=== PATIENT | male | born 1960 | race Caucasian/White ===

== ENCOUNTER 2018-04-21 05:33 | Observation (INO) | payer OTHER ==
[2018-04-21] MEDS ORDERED: POVIDONE-IODINE 20 ML in SODIUM CL IRRIG SOLUTION 500 ML IRR ONE (06:00)
[2018-04-21] MEDS ORDERED: ROPIVACAINE 0.2% 80 MG, EPINEPHrine 0.2 MG, KETOROLAC TROMETHAMINE 30 MG in SYRINGE 0 ML IU ONE (06:00)
[2018-04-21] MEDS ORDERED: ACETAMINOPHEN 500 MG TAB PO ONE (06:05)
[2018-04-21] MEDS ORDERED: LR 1,000 ML IV SCH (06:05)
[2018-04-21] MEDS ORDERED: ceFAZolin 2 GM/DEXTROSE 100 ML IV ONE (06:05)
[2018-04-21] MEDS ORDERED: LR 1,000 ML IV ONE (06:06)
[2018-04-21] MEDS ORDERED: LIDOCAINE 1% 2 ML INJ ID PRN (06:06)
[2018-04-21] MEDS ORDERED: BUPIVACAINE/EPI 0.5% 30 ML SDV ONE (06:46)
[2018-04-21] MEDS ORDERED: POLYMYXIN B SULFATE 500,000 UNIT/10 ML SYR IRR ONE (06:46)
[2018-04-21] MEDS ORDERED: BACITRACIN 50,000 UNITS/10 ML SYR IRR ONE (06:46)
[2018-04-21] MEDS ORDERED: PROPOFOL/EMULSION 500 MG/50 ML BOTTLE IV ONE ×3 (07:03→10:55)
[2018-04-21] MEDS ORDERED: BUPIVACAINE/DEXTROSE 7.5MG/ML 2 ML SPINAL AMP SP ONE (07:03)
[2018-04-21] MEDS ORDERED: LIDOCAINE 2% 5 ML SDV ONE (07:03)
--- NOTE | 2018-04-21 07:05 | PDHPUP ---
History & Physical Update H&P update statement: This history and physical update is based on an assessment of the patient which was completed after admission or registration (within 24 hours), but prior to the surgery/procedure. H&P update: H&P reviewed & patient examined
[2018-04-21] MEDS ORDERED: MIDAZOLAM 2 MG/2 ML VIAL IVP ONE (07:08)
--- NOTE | 2018-04-21 07:11 | PDANEPAE ---
ANE Past Medical History - Cardiovascular History Hx Hypertension: Yes Hx Arrhythmias: No Hx Chest Pain: No Hx Coronary Artery / Peripheral Vascular Disease: No Hx CHF / Valvular Disease: No Hx Palpitations: No - Pulmonary History Hx COPD: No Hx Asthma/Reactive Airway Disease: No Hx Recent Upper Respiratory Infection: No Hx Oxygen in Use at Home: No Hx Sleep Apnea: No Sleep Apnea Screening Result - Last Documented: Positive - Neurologic History Hx Cerebrovascular Accident: No Hx Seizures: No Hx Dementia: No - Endocrine History Hx Diabetes: No - Renal History Hx Renal Disorders: No - Liver History Hx Hepatic Disorders: No - Neurological & Psychiatric Hx Hx Neurological and Psychiatric Disorders: No - Cancer History Hx Cancer: Yes Cancer History Comment: melanoma - Congenital Disorder History Hx Congenital Disorders: No - GI History Hx Gastrointestinal Disorders: No - Other Health History Other Health History: none - Chronic Pain History Chronic Pain: No - Surgical History Prior Surgeries: left hip RONAL 2016 ANE Review of Systems Review of Systems: - Exercise capacity METS (RN): 5 METS ANE Patient History - Allergies Allergies/Adverse Reactions: No Known Allergies Allergy (Verified 04/07/18 11:08) - Home Medications Home Medications: Valsartan [Diovan (*)] 40 mg PO DAILY 04/02/18 [Last Taken Unknown] - NPO status NPO Since - Liquids (Date): 04/20/18 NPO Since - Liquids (Time): 18:00 NPO Since - Solids (Date): 04/20/18 NPO Since - Solids (Time): 18:00 - Anes Hx Anes Hx: no prior problems - Smoking Hx Smoking Status: Never smoked - Family Anes Hx Family Hx Anesthesia Complications: none ANE Labs/Vital Signs - Vital Signs Blood Pressure: 116/83 Heart Rate: 55 Respiratory Rate: 15 O2 Sat (%): 95 Height: 175.26 cm Weight: 86.183 kg ANE Physical Exam - Airway Mallampati Score: Class 2 - Pulmonary Pulmonary: no respiratory distress, no rales or rhonchi, clear to auscultation - Cardiovascular Cardiovascular: regular rate and rhythym, no murmur, rub, or gallop - ASA Status ASA Status: II ANE Anesthesia Plan Anesthesia Plan: spinal
[2018-04-21] MEDS ORDERED: ePHEDrine SULFATE 25 MG/5 ML SYR ONE (07:58)
[2018-04-21] MEDS ORDERED: PHENYLEPHRINE HCL 100 MCG/ML SYR ONE (08:13)
[2018-04-21] MEDS ORDERED: GLYCOPYRROLATE 0.2 MG/1 ML VIAL ONE ×2 (08:14→11:47)
[2018-04-21] MEDS ORDERED: PROPOFOL 200 MG/20 ML VIAL ONE ×2 (09:54→10:26)
[2018-04-21] MEDS ORDERED: LR 500 ML IV PRN (12:00)
[2018-04-21] MEDS ORDERED: MEPERIDINE 25 MG/0.5 ML AMP IVP PRN (12:00)
[2018-04-21] MEDS ORDERED: HYDROCODONE/APAP 5/325 TAB PO PRN (12:00)
[2018-04-21] MEDS ORDERED: NALOXONE HCL 0.4 MG/ML INJ IVP PRN (12:00)
[2018-04-21] MEDS ORDERED: ENALAPRILAT DIHYDRATE 1.25 MG/ML VIAL IVP PRN (12:00)
[2018-04-21] MEDS ORDERED: ACETAMINOPHEN 500 MG TAB PO PRN (12:00)
[2018-04-21] MEDS ORDERED: ONDANSETRON 4 MG/2 ML VIAL IVP PRN (12:00)
[2018-04-21] MEDS ORDERED: PROMETHAZINE HCL 25 MG/ML INJ IVP PRN (12:00)
[2018-04-21] MEDS ORDERED: DEXAMETHASONE 4 MG/ML VIAL IVP PRN (12:00)
[2018-04-21] MEDS ORDERED: ceFAZolin 1 GM VIAL ONE (12:09)
--- NOTE | 2018-04-21 12:22 | POSTOPPROG ---
Post Op Note Date of Operation: 04/21/18 Surgeon: Alfonso Butler Returned Item Clerk: Ivett Anesthesiologist: [place] Anesthesia: GET(General Endotracheal), Spinal Post-op Diagnosis: Hip arthritis with retained hardware in right femur Procedure: Hardware removal right hip and femur Inf/Abcess present in the surg proc area at time of surgery?: No EBL: 100-500
[2018-04-21] MEDS ORDERED: fentaNYL 100 MCG/2 ML INJ ONE ×2 (12:30→13:01)
[2018-04-21] MEDS ORDERED: ACETAMINOPHEN 325 MG TAB PO PRN (12:32)
[2018-04-21] MEDS: fentaNYL 100 MCG/2 ML INJ IVP PRN ×4 (12:32→13:17)
[2018-04-21] MEDS ORDERED: ONDANSETRON DISINTEGRATING 4 MG TAB PO PRN (12:32)
--- NOTE | 2018-04-21 12:42 | POSTANESTH ---
Post Anesthetic Evaluation Cardiovascular Status: Normal, Stable, Similar to Pre-Op Cond Respiratory Status: Normal, Stable, Similar to Pre-op Cond. Level of Consciousness/Mental Status: Can Participate in Eval, Mildly Sleepy, Arousable Pain Control: Inadeq, Add Tx Required Nausea/Vomiting Control: Adequate, Prn Tx Ordered Complications Possibly Related to Anesthesia: None Noted
[2018-04-21] MEDS ORDERED: NS 1,000 ML IV SCH (12:45)
[2018-04-21] MEDS ORDERED: traMADol 50 MG TAB PO PRN (13:00)
[2018-04-21] MEDS ORDERED: oxyCODONE IR 5 MG TAB ONE ×2 (13:02→13:16)
[2018-04-21] MEDS: oxyCODONE IR 5 MG TAB PO PRN ×2 (13:03→13:16)
--- NOTE | 2018-04-21 13:25 | GOP ---
[f rep st] OPERATIVE REPORT DATE OF OPERATION: 04/21/2018 SURGEON: Alfonso Butler MD WINDOWS DESKTOP SUPPORT: Juanito Killian CFA, Shashi Nunez, PAC. ANESTHESIA: Combination of Marcaine, spinal, and IV sedation. ANESTHESIOLOGIST: Navin Coleman MD. PREOPERATIVE DIAGNOSIS: 1. Status post open reduction and internal fixation of right subtrochanteric femur fracture with retained hardware. 2. Right hip severe degenerative arthritis. POSTOPERATIVE DIAGNOSIS: 1. Status post open reduction and internal fixation of right subtrochanteric femur fracture with retained hardware. 2. Right hip severe degenerative arthritis. PROCEDURE PERFORMED: Deep complex hardware removal from the right hip and the right femur. Kennard T 2 recon nail, 2 6.5 mm lag screws, 2 5 mm distal interlocking screws. FINDINGS: ESTIMATED BLOOD LOSS: Estimated blood loss was about 400 cc. The procedure was lengthy and complex, it took 4-1/2 hours, about 400 cc of blood loss. Juanito Killian CFA, Shashi Nunez, PAC acted as surgical assistants. Their assistance was a medical necessity. I took great effort to remove the hardware because he needs a total hip replacement on the right side. It is necessary to remove the hardware in order to perform his total hip replacement. DESCRIPTION OF PROCEDURE: The patient was given 2 g of preoperative IV Ancef within 60 minutes of surgery. He was placed on the operating room table and given spinal anesthesia with Marcaine. He was then placed supine and given IV sedation. I did his surgery on the Landry table so that I could used fluoroscopy through the table. He was placed supine but a triangular pillow was placed under the right side of his back and buttocks so he was tipped up in a slightly lateral position. His right hip and entire right lower extremity were prepped with ChloraPrep all the way to the tips of the toes. The hip and right lower extremity were draped free using sterile sheets, towels, stockinette and Ioban plastic drape. The World Health Organization time-out was performed to verify the correct patient identity and the correct surgical side. The first step was to remove the distal of the 2 distal interlocking screws. The more proximal of the interlocking screws was already broken as seen on the preop films. I used the fluoroscope to localize my skin puncture wound. I made a 1 cm incision through the preexisting incision which was used to insert the screw. With blunt dissection, I was able to palpate the head of the screw. The screwdriver was engaged, and the more distal of the 2 distal interlocking screws was removed without difficulty. I then made a lateral incision in the subtrochanteric region to remove the 2 cannulated screws which were going up into the femoral head and neck. The incision was about 2-3 inches in length. Subcutaneous tissues were sharply divided, and hemostasis was obtained using electrocautery. The fascia mahendra was split. With blunt dissection, I attempted to find the heads of the screws. I had to use fluoroscopy to help me identify the heads. There was bony overgrowth over 1 of the heads. I first removed the more distal of the 2 6.5 mm lag screws. This was in very firmly but I was able to loosen it and back it out. The more proximal of the 2 screws was also very tight. I was concerned that the set locking screw in the proximal end of the nail might be engaging the 6.5 screw and prevented me from backing it out. I then reopened his original incision in his buttocks. Subcutaneous tissues were sharply divided, and hemostasis was obtained using electrocautery. This incision might have worked well for putting the nail in but it was poorly positioned for removal of the nail. I had to extend the incision about an inch and half further. With blunt dissection and with the use of the fluoroscopy, I was finally able to visualize the proximal end of the intramedullary nail. I backed locking set screw out without difficulty. However, the small polyethylene tip to it was disengaged from the metal screw. I had to use a drill and an osteotome to drill this polyethylene piece out. I was then able to get the extractor threaded down into the proximal portion of the intramedullary nail. I then went back and removed the second of the 6.5 mm lag screws going up into the head and neck. This came out without difficulty but it was a very tight fit. I then made a second distal puncture wound and removed the lateral half of the broken transfixion screw. I was hoping that I could back the nail out and the remaining medial piece of the screw would not create a problem. The extractor was threaded onto the proximal portion of the nail. We tried backing the nail out,but it was very difficult. I used fluoroscopy to visualize the distal femur. I could see that the distal or medial segment of the broken screw was engaged in the medial cortex and I fractured a 2 cm window of the cortex. I did not think I could get the IM nail backed out without removing that broken piece of screw. I made a 2 inch incision on the medial side of the supracondylar aspect of his knee. The deep fascia was split. The vastus medialis was elevated. I could see the medial cortex. I could see the small fracture but I could also see the head of the screw where it was penetrating through the cortex. I used a small osteotome to enlarge the window. I also used a core reamer over the screw to loosen it from the medial cortex. Eventually I could get a mackey needle major on the fragment of screw and thread it out. I then went back to try to remove the IM nail, but is was very tight. After numerous attempts, we were able to back it out about an inch. At that point the threads on the nail were stripped. We tried multiple attempts at using vice polo coach attached to the proximal end of the nail and then using a slap hammer attached to the vise polo coach, however, that was unsuccessful. Ultimately, we took the extracting handle from a tibial nail and were able to thread that down into the threads of the femoral nail and engage it enough that we could get a decent purchase. The slap hammer was then used to slowly back out the nail. It was very tight and it took multiple attempts by Hima Solomon and myself to back the nail out. I then used the fluoroscopy to check the entire length of the femur to make sure there were no fractures. I felt that the small fracture in the medial cortex distally was stable and did not need any additional fixation. The hardware was cleaned and given to the patient. The wounds were all irrigated with Betadine solution. The fascia on the medial wound was closed with interrupted 0 Vicryl sutures. The fascia of the 2 larger wounds proximally was closed with interrupted 2-0 Vicryl sutures. Subcutaneous tissues were closed with interrupted 2-0 Vicryl. The skin on all the incisions was closed with jef. The skin edges were infiltrated with 30 cc of 0.5% Marcaine with epinephrine. The wounds were covered with Xeroform gauze and flat 4 x 4's. The distal femur was wrapped with a Kerlix. The proximal femur, the dressing was held in place with tape. He was awakened from anesthesia, transferred to his gurney and taken to PACU in satisfactory condition. The procedure took 4 and 1/2 hours. There was approximately 300 ml of blood loss. Juanito Killian and Hima Nunez acted as surgical assistants. There assistance was a medical necessity for safe completion of the procedure. Copy requested to: Alfonso Davey MD [facility] /[id number]/MODL MTDD
[2018-04-21] MEDS: KETOROLAC 15 MG/1 ML SDV IVP SCH (18:00)
[2018-04-22] MEDS: KETOROLAC 15 MG/1 ML SDV IVP SCH ×2 (00:10→05:39)
--- NOTE | 2018-04-22 07:15 | SOAPPROG ---
SOAP Progress Note Assessment/Plan: Assessment: Afebrile. Moderate pain. Has been walking in [place]. Needed cath 1 X last night. Voiding small amounts since. Dsgs are dry. Sciatic nerve intact. H/H is good. Complexity of procedure described to pt. Plan: Up with PT today Home is he can void. 04/22/18 07:13 Objective: Vital Signs Temp Pulse Resp BP Pulse Ox 36.8 C 98 16 108/79 93 04/22/18 04:00 04/22/18 04:00 04/22/18 04:00 04/22/18 04:00 04/22/18 04:00 Laboratory Results 04/22/18 04:41 04/21/18 04/22/18 04/23/18 05:59 05:59 05:59 Intake Total 4250 Output Total 1850 Balance 2400 ICD10 Worksheet Patient Problems: Problems Problem Status Onset Retained orthopedic hardware Acute
[2018-04-22] MEDS ORDERED: oxyCODONE IR 5 MG TAB PO PRN (07:19)
--- NOTE | 2018-04-22 07:41 | GDS ---
[f rep st] DISCHARGE SUMMARY ADMISSION DIAGNOSES: 1. Status post open reduction and internal fixation of right subtrochanteric femur fracture with int erlocking reconstruction nail. 2. Right hip severe degenerative arthritis. DISCHARGE DIAGNOSES: 1. Status post open reduction and internal fixation of right subtrochanteric femur fracture with int erlocking reconstruction nail. 2. Right hip severe degenerative arthritis. OPERATION PERFORMED: 04/21/2018, complex hardware removal from the right hip and femur. POSTOPERATIVE COMPLICATIONS: None. CONDITION ON DISCHARGE: Improved. DESCRIPTION OF HOSPITAL COURSE: The patient was admitted to the hospital the morning of surgery. Un dariusz a combination of Marcaine, spinal, and IV sedation, he underwent removal of hardware from the rig ht femur and the right hip. I created a cortical fracture in the medial aspect of the distal femur d uring surgery. Postoperatively, he was treated with a Velcro knee splint. He was treated with multi modal DVT prophylaxis including aspirin. He was seen by Physical Therapy and made good progress with ambulation. On the first postoperative day, his hemoglobin and hematocrit were 13.4 and 39.0. He r equired urinary catheterization one time postoperatively. DISPOSITION: The patient is discharged to his home. He will use the Velcro knee splint for a couple of weeks. He is going to be touchdown weightbearing on the right for the first few weeks. He has a prescription for oxycodone for pain. Continue aspirin 325 mg p.o. daily for 21 days. I will see concepción groves back in the office on April 29, 2018. If there any problems, he is to call me at the office. Copy requested to: Dr. Alfonso Ware [place] /[id number]/MODL
--- NOTE | 2018-04-22 08:52 | ASDISCHSUM ---
Discharge Information Plan Status:Home with No Needs Medically Cleared to Leave: Discharge Date: CM D/C Disposition:Home, Routine, Self-Care ADT D/C Disposition:Home, Routine, Self-Care Projected Discharge Date: Transportation at D/C:Family Discharge Delay Reason: Follow-Up Date: Discharge Slot: Final Diagnosis: Placement Information Patient Contact Information Contact Name:JARED Relationship: Address:[address] City:[place] Alternate Phone: State/Zip Code:[place] [address] Email: Financial Information Financial Class:[employer] Primary Plan Desc:[employer] P[employer] HMO OPEN ACC LOCAL Primary Plan Number:[id number] Secondary Plan Desc: Secondary Plan Number: Assessment Information Intervention Information
--- NOTE | 2018-04-22 08:55 | ASMTCMCOM ---
CM Note CM Note Notes: Medically cleared for dc to home independently. No needs.CM available should needs arise. Plan: Home independently. Date Signed: 04/22/2018 08:54 AM Electronically Signed By:Yana Chua RN
[2018-04-22] MEDS ORDERED: VALSARTAN 40 MG TAB PO SCH (09:00)
[2018-04-22] MEDS ORDERED: ASPIRIN 325 MG TAB PO SCH (09:00)
--- NOTE | 2018-04-22 09:08 | ASMTLACE ---
LACE Length of stay for Answers: 1 day current admission Acuity / Level of Answers: No Care: Did the patient have an inpatient admission? Comorbidities - select Answers: Other Notes: HTN all that apply # of Emergency department Answers: 0 visits in the last 6 months Score: 2 Date Signed: 04/22/2018 09:07 AM Electronically Signed By:Yana Chua RN
[2018-04-22 09:11] VITALS: BP 100/68
== END 2018-04-22 11:13 | disposition home or self-care (01) ==
LOC: F3N 05:33 → EDSTATUS 07:15 → F3N 13:40
PROVIDERS: ADMIT Orthopaedic Surgery; ATTEND Orthopaedic Surgery
PROC: 0QP604Z Removal of Internal Fixation Device from Right Upper Femur, Open Approach (ICD-10-PCS; principal; 2018-04-21 07:15)
PROC: 0QP204Z Removal of Internal Fixation Device from Right Pelvic Bone, Open Approach (ICD-10-PCS; principal; 2018-04-21 07:15)
DX: S72.21XD Displaced subtrochanteric fracture of right femur, subsequent encounter for closed fracture with routine healing (principal); M16.11 Unilateral primary osteoarthritis, right hip
CPT/HCPCS: 20680; 76001; 97116; 97161; 97165; G0378; C1713; J0171; J0690; J1885; J2250; J2270; J2370; J2704; J2795; J3010

== ENCOUNTER 2018-09-08 05:37 | Inpatient (IN) | payer OTHER ==
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
[2018-09-08] MEDS ORDERED: ACETAMINOPHEN 325 MG TAB PO ONE (05:45)
[2018-09-08] MEDS ORDERED: GABAPENTIN 300 MG CAP PO ONE (05:45)
[2018-09-08] MEDS ORDERED: ONDANSETRON 4 MG/2 ML VIAL IVP ONE (05:45)
[2018-09-08] MEDS ORDERED: ceFAZolin 2 GM/DEXTROSE 100 ML IV ONE (05:45)
[2018-09-08] MEDS ORDERED: DEXAMETHASONE 4 MG/ML VIAL IVP ONE (05:45)
[2018-09-08] MEDS ORDERED: FAMOTIDINE 20 MG TAB PO ONE (05:45)
[2018-09-08] MEDS ORDERED: LIDOCAINE 1% 2 ML INJ ID PRN (05:46)
[2018-09-08] MEDS ORDERED: LR 1,000 ML IV ONE (05:46)
[2018-09-08] MEDS ORDERED: TRANEXAMIC ACID 1,000 MG in NS 100 ML IV ONE (06:00)
[2018-09-08] MEDS ORDERED: ROPIVACAINE 0.2% 80 MG, EPINEPHrine 0.2 MG, KETOROLAC TROMETHAMINE 30 MG in SYRINGE 0 ML IU ONE (06:00)
[2018-09-08] MEDS ORDERED: TRANEXAMIC ACID 3,000 MG in NS (SYRINGE) 50 ML IRR ONE (06:00)
[2018-09-08] MEDS ORDERED: POVIDONE-IODINE 20 ML in SODIUM CL IRRIG SOLUTION 500 ML IRR ONE (06:00)
[2018-09-08] MEDS ORDERED: MIDAZOLAM 2 MG/2 ML VIAL IVP ONE (06:42)
--- NOTE | 2018-09-08 06:42 | PDANEPAE ---
ANE History of Present Illness OA here for R RONAL ANE Past Medical History - Cardiovascular History Hx Hypertension: Yes Hx Arrhythmias: No Hx Chest Pain: No Hx Coronary Artery / Peripheral Vascular Disease: No Hx CHF / Valvular Disease: No Hx Palpitations: No - Pulmonary History Hx COPD: No Hx Asthma/Reactive Airway Disease: No Hx Recent Upper Respiratory Infection: No Hx Oxygen in Use at Home: No Hx Sleep Apnea: No - Neurologic History Hx Cerebrovascular Accident: No Hx Seizures: No Hx Dementia: No - Endocrine History Hx Diabetes: No - Renal History Hx Renal Disorders: No - Liver History Hx Hepatic Disorders: No - Neurological & Psychiatric Hx Hx Neurological and Psychiatric Disorders: No - Cancer History Hx Cancer: Yes Cancer History Comment: melanoma - Congenital Disorder History Hx Congenital Disorders: No - GI History Hx Gastrointestinal Disorders: No - Other Health History Other Health History: OSTEOARTHRITIS - Chronic Pain History Chronic Pain: No - Surgical History Prior Surgeries: REMVL RT FEMUR NAYAN 03/2018. left hip RONAL 2016. ORIF RT FEMUR 2007. APPENDECTOMY ANE Review of Systems Review of Systems: - Exercise capacity METS (RN): 5 METS ANE Patient History - Allergies Allergies/Adverse Reactions: No Known Allergies Allergy (Verified 04/07/18 11:08) - Home Medications Home Medications: Valsartan [Diovan (*)] 40 mg PO DAILY 04/02/18 [Last Taken 09/06/18] Ibuprofen [Motrin (*)] 200 mg PO DAILY PRN 08/23/18 [Last Taken 09/04/18] - NPO status NPO Status: no food or drink >8 hours - Anes Hx Anes Hx: no prior problems - Smoking Hx Smoking Status: Never smoked - Alcohol Use Alcohol Use: Occasionally - Family Anes Hx Family Anes Hx: none Family Hx Anesthesia Complications: none ANE Labs/Vital Signs - Vital Signs Vital Signs: reviewed preoperatively; see RN documention for details Height: 175.26 cm Weight: 86.183 kg ANE Physical Exam - Airway Neck exam: FROM Mallampati Score: Class 2 Mouth exam: normal dental/mouth exam - Pulmonary Pulmonary: no respiratory distress, clear to auscultation - Cardiovascular Cardiovascular: regular rate and rhythym, no murmur, rub, or gallop - ASA Status ASA Status: II ANE Anesthesia Plan Anesthesia Plan: GA with mask, spinal Total IV Anesthesia: Yes
[2018-09-08] MEDS ORDERED: TRANEXAMIC ACID 3,000 MG/50 ML BAG IRR ONE (06:44)
[2018-09-08] MEDS ORDERED: ceFAZolin 1 GM/5 ML SYR ONE (06:45)
[2018-09-08] MEDS ORDERED: PROPOFOL/EMULSION 500 MG/50 ML BOTTLE IV ONE ×2 (06:48→08:50)
[2018-09-08] MEDS ORDERED: MIDAZOLAM 2 MG/2 ML VIAL ONE (07:10)
[2018-09-08] MEDS ORDERED: PROMETHAZINE HCL 25 MG/ML INJ IVP PRN (09:46)
[2018-09-08] MEDS ORDERED: diphenhydrAMINE 25 MG CAP PO PRN (09:46)
[2018-09-08] MEDS ORDERED: TEMAZEPAM 15 MG CAP PO PRN (09:46)
[2018-09-08] MEDS ORDERED: ONDANSETRON DISINTEGRATING 4 MG TAB PO PRN (09:46)
[2018-09-08] MEDS ORDERED: PROMETHAZINE HCL 25 MG SUPPR PR PRN (09:46)
[2018-09-08] MEDS ORDERED: BISACODYL 10 MG SUPP PR PRN (09:46)
[2018-09-08] MEDS ORDERED: POLYETHYLENE GLYCOL 3350 17 GM PKT PO PRN (09:46)
[2018-09-08] MEDS ORDERED: oxyCODONE IR 5 MG TAB PO PRN ×2 (09:46→10:12)
[2018-09-08] MEDS ORDERED: DIPHENOXYLATE/ATROPINE LOMOTIL 1 TAB PO PRN (09:46)
[2018-09-08] MEDS ORDERED: LACTULOSE 20 GM/30 ML UDCUP PO PRN (09:46)
[2018-09-08] MEDS ORDERED: MAGNESIUM HYDROXIDE 30 ML UDCUP PO PRN (09:46)
[2018-09-08] MEDS ORDERED: CYCLOBENZAPRINE 10 MG TAB PO PRN (09:46)
[2018-09-08] MEDS ORDERED: METOCLOPRAMIDE 10 MG/2 ML VIAL IVP PRN (09:46)
[2018-09-08] MEDS ORDERED: NS 500 ML IV PRN (09:46)
[2018-09-08] MEDS ORDERED: ONDANSETRON 4 MG/2 ML VIAL IVP PRN ×2 (09:46→10:12)
--- NOTE | 2018-09-08 09:52 | POSTOPPROG ---
Post Op Note Date of Operation: 09/08/18 Surgeon: Alfonso Butler Rug Layer: Maria D/Enrique Anesthesiologist: Marii Anesthesia: IV Sedation, Spinal Post-op Diagnosis: Right hip severe degenerative arthritis. Procedure: Right total hip arthroplasty, modular mosque stem. Inf/Abcess present in the surg proc area at time of surgery?: No EBL: 100-500
[2018-09-08] MEDS ORDERED: LR 1,000 ML IV SCH (10:00)
[2018-09-08] MEDS ORDERED: NALOXONE HCL 0.4 MG/ML INJ IVP PRN (10:12)
[2018-09-08] MEDS ORDERED: ACETAMINOPHEN 500 MG TAB PO PRN (10:12)
[2018-09-08] MEDS ORDERED: HYDROCODONE/APAP 5/325 TAB PO PRN (10:12)
[2018-09-08] MEDS ORDERED: fentaNYL 100 MCG/2 ML INJ IVP PRN (10:12)
[2018-09-08] MEDS ORDERED: HYDROmorphONE/DILAUDID 2 MG/ML INJ IVP PRN (10:12)
--- NOTE | 2018-09-08 10:15 | POSTANESTH ---
Post Anesthetic Evaluation Cardiovascular Status: Normal, Stable, Similar to Pre-Op Cond Respiratory Status: Normal, Stable, Similar to Pre-op Cond. Level of Consciousness/Mental Status: Can Participate in Eval, Alert and Oriented Pain Control: Adequate, Prn Tx Ordered Nausea/Vomiting Control: Adequate, Prn Tx Ordered Complications Possibly Related to Anesthesia: None Noted
--- NOTE | 2018-09-08 11:17 | PDMN ---
Medical Necessity Medical necessity: Pt meets inpt criteria per MD order and [facility] [place] S-[id number], Hip Arthroplasty, [facility] inpt only list. y/o w/R hip severe degen arthritis, admitted for R RONAL and post-op care.
--- NOTE | 2018-09-08 11:26 | GOP ---
DATE OF OPERATION: 09/08/2018 SURGEON: Alfonso Butler MD CLAY PREPARATION SUPERVISOR: Juanito Killian and Hima Nunez. ANESTHESIA: Combination of Marcaine, spinal, and IV sedation. ANESTHESIOLOGIST: Jevon Colvin MD. PREOPERATIVE DIAGNOSIS: Right hip severe degenerative arthritis. Status post open reduction and int ernal fixation of right hip subtrochanteric femur fracture. POSTOPERATIVE DIAGNOSIS: Right hip severe degenerative arthritis. Status post open reduction and in ternal fixation of right hip subtrochanteric femur fracture. PROCEDURE PERFORMED: Right total hip arthroplasty, ceramic femoral head on highly cross-linked polye thylene cup liner. Modular confucianism stem. FINDINGS: DESCRIPTION OF PROCEDURE: The patient was given 2 g of IV Ancef within 60 minutes of surgery. He al so received 1000 mg of IV tranexamic acid preoperatively. He was placed on the operating room table and given spinal anesthesia with Marcaine by Dr. Jevon Colvin. He was then placed supine and given IV sedation. A Landeros catheter was not used. He wore a BALAJI stocking and SCD on the nonoperative leg. H e was rolled to the left lateral decubitus position. The position was secured with the pegboard tabl e attachment. An axillary roll was used, and all pressure points were carefully padded. I was caref ul to lock his pelvis in a vertical position. His perineum was isolated with plastic adhesive drapes . His right hip and right lower extremity were prepped with ChloraPrep. They were draped free using sterile sheets, stockinette, and Ioban plastic drapes. The [employer] time-out was performed to verify the correct surgical side and site and the correct patient identity. The [place] time-out was also performed. I made a 6-inch straight oblique posterolateral hip skin incision. He had multiple previous incision s on the lateral thigh and buttocks from insertion of the locking IM marta and from removal of that sabine dware 6 months ago. I left adequate skin bridges between my new incision and the previous incisions. None of the previous incisions were suitably positioned to use for the total hip replacement. Subc utaneous tissues were sharply divided, and hemostasis was obtained using electrocautery. His fascia mahendra was identified and split along the axis of its fibers. I curved posteriorly and proximally, and split the fascia of gluteus val and bluntly split the muscle fibers in line with their orientati on. There was quite a bit of scar tissue and adherent tissues in the gluteus val area and in the trochanteric bursal area from his previous surgeries. I mobilized the fascia mahendra anteriorly. The Charnley self-retaining retractor was inserted. His sciatic nerve was located, and partially exposed , and protected throughout the procedure. There was some scar tissue posteriorly around the sciatic nerve. I was careful to avoid that area. His external rotators and capsule were scarred from his pr evious surgery. They were divided as separate layers, tagged and reflected posteriorly. A smooth 8- inch Steinmann pin was inserted vertically into the ilium, superior to the acetabulum. An 8-inch dri ll bit was inserted vertically into the greater trochanter and parallel to the first pin. The distan ce between the 2 was measured for leg length reference. His femoral head was carefully dislocated po steriorly. Severe degenerative changes were present on the femoral head. The femoral neck was osteo tomized. I was careful to preserve all the posterior capsule and most of the anterior capsule. The remnant of his damaged labrum was excised. Appropriate reamers were inserted to expose the acetabulum. The acetabulum was reamed sequentially u p to 58 mm. I selected the 58 mm Bhavesh trident II cluster hole hemispherical shell. This was deirdre ed securely into place in the proper degree of inclination anteversion. I used the transverse acetab ular ligament and other acetabular bony landmarks to help me properly orient the cup. The cup fixati on was very tight. He had large anterior acetabular osteophytes which I removed with an osteotome an d rongeur. He had a deep medial acetabular osteophyte. I was careful to ream to the depth of the tr ue acetabular floor. I then prepared the femur. I used the starter reamer from the Jackson modular confucianism system. I had trouble advancing the reamer. There was deformity in his proximal femur from his previous fract ure. I took a cross-table intraoperative x-ray and could see that I was not directing the reamer in the proper angle. I then went back and redirected the reamer and was able to ream distally into the canal. I took a cross-table AP and frog-lateral view of the femur with a reamer in place to confirm that I was within the medullary canal. He had very good quality bone in the proximal femur. The ki mila was difficult because of the previous deformity from his fracture. I reamed distally to 15 mm. The modular confucianism distal sleeve size 15 mm x 155 mm was tapped securely into place. I did a s eries of trial reductions. I used cross-table AP x-rays multiple times to assure proper position of the components in proper leg length. I reamed proximally to 21 mm and inserted the 21 mm +10 proxima l body. This was dialed into about 15 degrees of anteversion. The locking screw was inserted and ti ghtened securely. I did a trial reduction and confirmed that the +10 lipped liner with a 0 neck bar th and a 36 mm head was the proper combination. I took a cross-table AP x-ray intraoperatively to co nfirm leg lengths. The Bhavesh 10 degree lipped X3 highly cross-linked polyethylene liner was inserted and tapped secure ly into place. I dialed the 10 degree lip directly posterior. I selected the 36 mm biologic Delta c eramic head with a 0 neck length. This was tapped onto the clean trunnion. The acetabulum was irrig ated, cleaned, and the hip was reduced 1 final time. He had excellent anterior and posterior stabili ty and appropriate length. The wound was thoroughly irrigated with a dilute Betadine solution. 40 mL of the joint anesthetic co cktail were injected into the capsule, the deep musculature, and the subcutaneous tissues around the skin edges. The joint was thoroughly irrigated 1 final time with a dilute Betadine solution. His sc iatic nerve was reinspected and looked unharmed. 50 cc of tranexamic acid solution was irrigated int o the wound. The external rotators and the posterior hip capsule were repaired in separate layers with #2 FiberWir e sutures through drill holes in the greater trochanter. This provided a strong posterior capsular a nd external rotator repair. The fascia mahendra was closed first with 2 [id number]-in-[id number] #2 FiberWire sut ures followed by a running #2 barbed Ethicon Stratafix PDO suture. Subcutaneous tissues were closed with a running 0 barbed Ethicon Stratafix Monoderm suture. The skin was closed with a running 3-0 ba rbed Ethicon Stratafix Monoderm subcuticular suture. The skin edges were reapproximated and sealed w [facility] Dermond glue. The wound was covered with a large piece of water proof Mepilex surgical dressin g. The Mepilex sacral dressing was also applied. A long-leg BALAJI stocking and SCD were applied to his right lower extremity. He wore a stocking and SC D on the opposite leg during the procedure. An abduction pillow was placed between his knees. He wa s awakened from anesthesia and rolled to the supine position on his [facility]. He was taken to PACU in satisfactory condition. There were no recognized intraoperative complications. The estimated blood loss was about 500 mL. A sponge and needle count were correct on 2 occasions. I used a Bhavesh Trident II hemispherical cluster hole acetabular shell with an outside diameter of 5 8 mm. The liner was a Bhavesh X3 highly cross-linked 10 degree lipped liner with an inside diameter of 36 mm. The femoral component was a Jackson modular confucianism stem. Distally was 15 mm x 155 mm . Proximally was 21 mm with a +10 height. The femoral head was a Jackson Biolox Delta ceramic head with a 0 neck length and a 36 mm outside diameter. The procedure was more complicated and difficult because of all the scarring from his previous surgery. In addition, the preparation of the femur was much more difficult because of the deformity in the femur. The procedure took about 2 hours and 10 minutes. There was greater than average blood loss because of the length and complexity of the opera tion. Juanito Killian and Hima Nunez acted as surgical first assistants. Their assistance was a medical necessity for safe completion of the procedure. Copy requested to: Alfonso Davey MD /[id number]/MODL
[2018-09-08] MEDS ORDERED: KETOROLAC 15 MG/1 ML SDV IVP SCH (12:00)
[2018-09-08] MEDS ORDERED: ACETAMINOPHEN 325 MG TAB PO SCH (12:00)
--- NOTE | 2018-09-08 13:32 | SOAPPROG ---
SOAP Progress Note Assessment/Plan: Assessment: Back in room. Min pain so far. Right sciatic nerve intact. Films look excellent. Needed vanegas in PACU. Plan: Up with PT. H/H is pending. DC later today if cleared by PT and able to void. 09/08/18 13:30 Objective: Vital Signs Temp Pulse Resp BP Pulse Ox 36.4 C 54 L 16 104/80 96 09/08/18 12:57 09/08/18 12:57 09/08/18 12:57 09/08/18 12:57 09/08/18 12:57 09/07/18 09/08/18 09/09/18 05:59 05:59 05:59 Intake Total 2000 Output Total 1350 Balance 650 ICD10 Worksheet Patient Problems: Problems Problem Status Onset Osteoarthritis of right hip Acute Retained orthopedic hardware Acute
--- NOTE | 2018-09-08 13:57 | GDS ---
ADMISSION DIAGNOSIS: Right hip arthritis. DISCHARGE DIAGNOSIS: Right hip arthritis. OPERATION PERFORMED: 09/08/2018, a right total hip arthroplasty. POSTOPERATIVE COMPLICATIONS: None. CONDITION ON DISCHARGE: Improved. DESCRIPTION OF HOSPITAL COURSE: The patient was admitted to the hospital on the morning of surgery. The same day, under a combination of Marcaine spinal and IV sedation, he underwent a right total hip arthroplasty. Postoperatively, he was sent to the floor. He was seen by Physical Therapy and clear ed on ambulation and stairs. He required catheterization in the PACU 1 time. The patient was discha rged on the day of surgery. DISPOSITION: Patient discharged to his home. He will go to outpatient physical therapy next week ag o. He may progress to full weightbearing on the right as tolerated. Use BALAJI stockings for 1 week. Continue aspirin 325 mg p.o. daily for 21 days. He has prescriptions for oxycodone, tramadol and Cherri ebrex for pain control. Use an abduction pillow in bed for 3 weeks. I will see him back in the off ce on September 30, 2018. If there are any problems, he is to call me at the office. Copy requested to: Alfonso Ware /[id number]/MODL
[2018-09-08] MEDS ORDERED: ceFAZolin 2 GM/DEXTROSE 100 ML IV SCH (14:00)
[2018-09-08 16:09] VITALS: BP 110/66
[2018-09-08] MEDS ORDERED: FAMOTIDINE 20 MG TAB PO SCH (21:00)
[2018-09-08] MEDS ORDERED: ASPIRIN 325 MG TAB PO SCH (21:00)
[2018-09-08] MEDS ORDERED: SENNOSIDES/DOCUSATE SODIUM TAB PO SCH (21:00)
[2018-09-09] MEDS ORDERED: VALSARTAN 40 MG TAB PO SCH (09:00)
[2018-09-09] MEDS ORDERED: FERROUS SULFATE 140 MG TAB.ER PO SCH (09:00)
== END 2018-09-08 17:07 | disposition home or self-care (01) | DRG 470 ==
LOC: F3N 05:37 → OBSVTOIN 09:50 → F3N 12:49
PROVIDERS: ADMIT Orthopaedic Surgery; ATTEND Orthopaedic Surgery
PROC: 0SR904Z Replacement of Right Hip Joint with Ceramic on Polyethylene Synthetic Substitute, Open Approach (ICD-10-PCS; principal; 2018-09-08 07:15)
DX: M16.11 Unilateral primary osteoarthritis, right hip (principal); I10 Essential (primary) hypertension
CPT/HCPCS: 97161-GP; 97165-GO; C1713; J0171; J0690; J1100; J1885; J2250; J2405; J2704; J2795